=== PATIENT | male | born 1950 | race Caucasian/White ===

== ENCOUNTER 2017-01-25 05:57 | Day surgery (SDC) | payer MEDICARE, OTHER ==
[2017-01-25] MEDS ORDERED: Sodium Chloride 0.9% 10 ML Syringe FLUSH PRN ×2 (06:02→07:30)
[2017-01-25] MEDS ORDERED: fentaNYL 100 MCG/2 ML SDV ONE (06:15)
[2017-01-25] MEDS ORDERED: Midazolam 1 MG/ML 2 ML SDV ONE (06:15)
[2017-01-25] MEDS ORDERED: Dextrose 5%-0.45% NaCl 1,000 ML IV SCH ×2 (06:15→07:30)
[2017-01-25] MEDS ORDERED: fentaNYL 100 MCG/2 ML SDV IV ONE ×5 (07:03→14:41)
[2017-01-25] MEDS ORDERED: Midazolam 1 MG/ML 2 ML SDV IV ONE ×7 (07:04→14:41)
--- NOTE | 2017-01-25 07:43 | OR ---
DATE: 01/25/2017 PROCEDURE: Total colonoscopy. INSTRUMENT USED: CF-H180AL Olympus video colonoscope. PREMEDICATIONS: Fentanyl 150 mcg intravenous, Versed 4 mg intravenous. Nasal O2 cannula. The procedure was done under pulse oximetry, BP recording, and cardiac care nurse. INDICATION: The patient with rectal bleeding. Colonoscopic examination is done for detection of any polypoid lesions and removal, endoscopic hemostasis therapy if needed. DESCRIPTION OF PROCEDURE: Initial rectal exam showed small external hemorrhoids. Rigid anoscopy showed small internal hemorrhoids without bleeding from them. The colonoscope was passed with ease. Few scattered diverticula were noted in the distal left colon along with some deformity. The scope was passed with ease up to the ileocecal area. There was some amount of fecal material that had to be aspirated. No bleeding was noted from any of the visualized areas at the commencement of the examination. No stricture. No vascular ectasia. No large isolated ulcerations seen. No evidence of diffuse inflammatory bowel disease in the form of friability, contact bleeding, or ulcerations. No polyp or tumor mass identified. Probing the proximal sides of folds and flexures, using adequate distention and clearing of the stool material, withdrawal of the scope was made, cecum to rectum time over 6 minutes. No bleeding was noted from any of the visualized areas at the completion of examination. IMPRESSION: 1. External and internal hemorrhoids. 2. Diverticulosis. The patient tolerated the procedure well. [facility] /[id number]
[2017-01-25 09:34] VITALS: BP 130/69
== END 2017-01-25 09:25 | disposition home or self-care (01) ==
LOC: DL.ENDO 05:57
PROVIDERS: ATTEND Internal Medicine Gastroenterology
DX: K64.8 Other hemorrhoids (principal); K64.4 Residual hemorrhoidal skin tags; K57.30 Diverticulosis of large intestine without perforation or abscess without bleeding; E66.9 Obesity, unspecified; I10 Essential (primary) hypertension; E79.0 Hyperuricemia without signs of inflammatory arthritis and tophaceous disease; E78.5 Hyperlipidemia, unspecified; R73.9 Hyperglycemia, unspecified; Z88.8 Allergy status to other drugs, medicaments and biological substances; Z87.891 Personal history of nicotine dependence; Z79.899 Other long term (current) drug therapy; Z72.0 Tobacco use
CPT/HCPCS: 45378; J2250; J3010; J7042

== ENCOUNTER 2019-11-17 21:46 | Emergency (ER) | payer MEDICARE, OTHER ==
--- NOTE | 2019-11-17 21:38 | PCM.SN.2 ---
- Free Text/Narrative Note: Carl Teran is a 69 y/o male with chief complaint of severe lower abdominal pain which started in the last 24 hours. He has had 5 BMs today. No N/V. No blood by mouth or rectum. Temp 96.4. No other family members have been ill. No cough, shortness of breath, sore throat or other symptoms. Mr. Teran's mother last weekend (11/10/19). She tested Covid positive on 10/30/19 while in a local jail. She developed ischemic necrosis of the small bowel while in Covid isolation. Mr. Teran had not seen his mother for about a month prior to her but was allowed a compassionate family visit on the day before her (11/08). He donned and wore complete PPE: gown, mask with face shield, and gloves. He states he did not remove any of the PPE during the short visit. I spoke with Cliff's , Caryn. She stated that they do not wear masks when out in public and have been to [employer] without masks. She and her daughter are both well. Past Medical History: hypertension. OA. Chronic back pain. Abnormal LFTs. I discussed the case with Dr. Clancy. He will see Mr. Teran in the ER. A rapid Covid-19 screening will be done before any workup is started. Impression: 1. Acute abdominal pain with multiple BMs. 2. Recent of mother, as above. Saw mother on day prior to , wearing complete PPE.
[~2019-11-17 21:46] MED LIST: Sodium Chloride 0.9% 1,000 ML IV SCH
[2019-11-17 21:51] VITALS: BP 156/77; PULSE 64
[2019-11-17] MEDS ORDERED: Loperamide 2 MG Cap PO ONE (22:58)
== END 2019-11-17 23:11 | disposition home or self-care (01) ==
LOC: DL.ED 21:46
DX: R10.30 Lower abdominal pain, unspecified (principal); I10 Essential (primary) hypertension; M06.9 Rheumatoid arthritis, unspecified; Z20.828 Contact with and (suspected) exposure to other viral communicable diseases
CPT/HCPCS: 36415; 80053; 83605; 85025; 99284; U0002

== ENCOUNTER 2021-04-03 12:52 | Emergency (ER) | payer MEDICARE, OTHER ==
[2021-04-03 13:11] VITALS: BP 141/67; PULSE 58
[2021-04-03] MEDS ORDERED: Sodium Chloride 0.9% 10 ML Syringe FLUSH PRN (13:47)
--- NOTE | 2021-04-03 13:47 | EDM.PDOC ---
ED HPI GENERAL MEDICAL PROBLEM - General Chief Complaint: Cardiovascular Problem Stated Complaint: [id number] DIZZINESS LOW BLOOD PRESSURE Time Seen by Provider: 04/03/21 13:25 Source of Information: Reports: Patient History Limitations: Reports: No Limitations - History of Present Illness INITIAL COMMENTS - FREE TEXT/NARRATIVE: 71 y/ M c/o an episode of dizziness, hypotension yesterday, upper left back pn, abd pn. Pt reports that he has had dizziness off and on for a week but after smoking some marijuana yesterday he became so dizzy he fell. His checked his BP at the time and reports it was 64/38. The symptoms resolved on their own without intervention. Pt has also had some abd pn for several days adn was evaluated for by Dr. Thomson who had an ultrasound done 03-23 which showed gall stones. Today the pt is slightly dizzy, worse bending over. Abd pn is 2/10 diffuse over the upper abd. No abdominal surgeries. No fever, cough, chills, cp, db, pelvic pn. abdominal Pain Score (Numeric/FACES): 2 - Related Data Allergies Allergy/AdvReac Type Severity Reaction Status Date / Time duloxetine [From Cymbalta] Allergy Cannot Verified 04/03/21 13:11 Remember gabapentin AdvReac Dizziness Verified 04/03/21 13:11 Home Meds: Home Meds Aspirin [Ecotrin EC] 81 mg PO DAILY 01/24/17 [History] Calcium Carbonate/Vitamin D3 [Os-Ventura 500+D] 1 tab PO DAILY 01/24/17 [History] Ezetimibe [Zetia] 10 mg PO DAILY 01/24/17 [History] Hydrocodone/Acetaminophen [Hydrocodone-Acetaminophen 5-325] 1 tab PO Q8H PRN 01/24/17 [History] Hydrocortisone 1 squirt TOP ASDIRECTED 01/24/17 [History] Lidocaine/Hydrocortisone AC [Lidocaine-Hydrocort 3-2.5% Gel] 1 squirt TOP ASDIRECTED 01/24/17 [History] Pantoprazole Sodium 20 mg PO DAILY 01/24/17 [History] amLODIPine [Norvasc] 10 mg PO DAILY 01/24/17 [History] lisinopriL [Prinivil] 40 mg PO DAILY 01/24/17 [History] Past Medical History HEENT History: Reports: Impaired Vision Other HEENT History: wear glasses Cardiovascular History: Reports: High Cholesterol, Hypertension Respiratory History: Reports: None Gastrointestinal History: Reports: Cholelithiasis, GERD Genitourinary History: Reports: None Musculoskeletal History: Reports: Back Pain, Chronic, Gout, Osteoarthritis Neurological History: Reports: None Psychiatric History: Reports: None Endocrine/Metabolic History: Reports: Obesity/BMI 30+ Hematologic History: Reports: None Immunologic History: Reports: None Oncologic (Cancer) History: Reports: Other (See Below) Other Oncologic History: pre-cancerous skin lesion on right cheek Dermatologic History: Reports: None - Infectious Disease History Infectious Disease History: Reports: Measles Other Infectious Disease History: doesnt remember most of chid diseases - Past Surgical History HEENT Surgical History: Reports: None GI Surgical History: Reports: None Musculoskeletal Surgical History: Reports: Carpal Tunnel Social & Family History - Family History Family Medical History: No Pertinent Family History - Tobacco Use Tobacco Use Status *Q: Never Tobacco User Second Hand Smoke Exposure: No - Caffeine Use Caffeine Use: Reports: Coffee Other Caffeine Use: 3 cups a day - Alcohol Use Days Per Week of Alcohol Use: 7 Number of Drinks Per Day: 2 Total Drinks Per Week: 14 - Recreational Drug Use Recreational Drug Use: Yes Recreational Drug Type: Reports: Marijuana/Hashish Recreational Drug Use Frequency: Daily ED ROS GENERAL - Review of Systems Review Of Systems: Comprehensive ROS is negative, except as noted in HPI. ED EXAM, GENERAL - Physical Exam Exam: See Below General Appearance: Alert, No Apparent Distress Eye Exam: Bilateral Eye: PERRL Ears: Normal External Exam, Normal Canal, Hearing Grossly Normal, Normal TMs Nose: Normal Inspection, Normal Mucosa, No Blood Throat/Mouth: Normal Inspection, Normal Lips, Normal Teeth, Normal Gums, Normal Oropharynx, Normal Voice, No Airway Compromise Head: Atraumatic, Normocephalic Neck: Normal Inspection, Supple, Non-Tender, Full Range of Motion Respiratory/Chest: No Respiratory Distress, Lungs Clear, Normal Breath Sounds, No Accessory Muscle Use, Chest Non-Tender Cardiovascular: Normal Peripheral Pulses, Bradycardia Peripheral Pulses: 1+: Dorsalis Pedis (L), Dorsalis Pedis (R), 2+: Carotid (L), Carotid (R), Radial (L), Radial (R), Femoral (L), Femoral (R) GI/Abdominal: Soft, Tender (tender over upper quad, pt has an obese abd, aortic pulsation appreciable just below the epigastrium) Back Exam: Normal Inspection, Full Range of Motion Extremities: Normal Inspection, Normal Range of Motion, Non-Tender Neurological: Alert, Oriented, CN II-XII Intact, Normal Cognition, Normal Gait, Normal Reflexes, No Motor/Sensory Deficits Psychiatric: Normal Affect, Normal Mood Skin Exam: Warm, Dry, Intact, Normal Color, No Rash #1 Interpretation EKG Date: 04/03/21 Time: 13:57 Rhythm: Other (sinus rhythm) Rate (Beats/Min): 50 [place]: Normal P-Wave: Present QRS: Other (abnormal R-wave progression, early transition) ST-T: Normal QT: Normal Course - Vital Signs Last Recorded V/S: Last Vital Signs Temp 97.6 F 04/03/21 13:03 Pulse 58 L 04/03/21 13:03 Resp 16 04/03/21 13:03 BP 141/67 H 04/03/21 13:03 Pulse Ox 98 04/03/21 13:03 - Orders/Labs/Meds Orders: Active Orders 24 hr Category Date Time Status Peripheral IV Care [RC] . DIRECTED Care 04/03/21 13:48 Active Sodium Chloride 0.9% [Saline Flush] Med 04/03/21 13:47 Active 10 ml FLUSH ASDIRECTED PRN Peripheral IV Insertion Adult [OM.PC] Routine Oth 04/03/21 13:47 Ordered Medication Orders Sodium Chloride (Sodium Chloride 0.9% 10 Ml Syringe) 10 ml FLUSH ASDIRECTED PRN PRN Reason: Keep Vein Open Last Admin: 04/03/21 15:49 Dose: 10 ml Documented by: [id number] Labs: Laboratory Tests 04/03/21 04/03/21 04/03/21 Range/Units 13:53 13:56 13:56 WBC 7.8 (5.0-10.0) 10^3/uL RBC 4.32 L (4.6-6.2) 10^6/uL Hgb 13.2 L D (14.0-18.0) g/dL Hct 39.6 L (40.0-54.0) % MCV 91.7 (80-100) fL MCH 30.6 (27.0-34.0) pg MCHC 33.3 (33.0-35.0) g/dL Plt Count 238 (150-450) 10^3/uL Neut % (Auto) 72.0 (42.2-75.2) % Lymph % (Auto) 19.0 L (20.5-50.1) % Smyth % (Auto) 7.3 (2-8) % Eos % (Auto) 1.2 (1.0-3.0) % Baso % (Auto) 0.5 (0.0-1.0) % Sodium 141 (136-145) mmol/L Potassium 4.6 (3.5-5.1) mmol/L Chloride 103 (98-107) mmol/L Carbon Dioxide 29 (21-32) mmol/L Anion Gap 13.6 H (7-13) mEq/L BUN 32 H (7-18) mg/dL Creatinine 1.42 H (0.70-1.30) mg/dL Est Cr Clr Drug Dosing 49.27 mL/min Estimated GFR (MDRD) 49 BUN/Creatinine Ratio 22.5 (No establ ref range) Glucose 123 H (70-99) mg/dL Lactic Acid (0.4-2.0) mmol/L Calcium 9.0 (8.5-10.1) mg/dL Phosphorus 3.9 (2.6-4.7) mg/dL Magnesium 2.4 (1.8-2.4) mg/dL Total Bilirubin 0.9 (0.2-1.0) mg/dL AST 143 H (15-37) U/L ALT 108 H (16-63) U/L Alkaline Phosphatase 243 H (46-116) U/L Lactate Dehydrogenase (85-227) U/L Troponin I High Sens 5 (<=76) pg/mL C-Reactive Protein < 0.2 (0.0-0.9) mg/dL B-Natriuretic Peptide 31 (0-100) pg/ml Total Protein 7.5 (6.4-8.2) g/dL Albumin 3.8 (3.4-5.0) g/dL Globulin 3.7 Albumin/Globulin Ratio 1.0 Amylase 73 (25-115) U/L Lipase 121 (73-393) U/L TSH, Ultra Sensitive (0.36-3.74) uIU/mL Urine Color (YELLOW) Urine Appearance (CLEAR) Urine pH (5.0-9.0) Ur Specific [place] (1.005-1.030) Urine Protein (NEGATIVE) Urine Glucose (UA) (NEGATIVE) Urine Ketones (NEGATIVE) Urine Occult Blood (NEGATIVE) Urine Nitrite (NEGATIVE) Urine Bilirubin (NEGATIVE) Urine Urobilinogen (0.2-1.0) mg/dL Ur Leukocyte Esterase (NEGATIVE) SARS CoV-2 RNA Rapid MEGAN Negative (NEGATIVE) 04/03/21 04/03/21 04/03/21 Range/Units 13:56 13:56 13:56 WBC (5.0-10.0) 10^3/uL RBC (4.6-6.2) 10^6/uL Hgb (14.0-18.0) g/dL Hct (40.0-54.0) % MCV (80-100) fL MCH (27.0-34.0) pg MCHC (33.0-35.0) g/dL Plt Count (150-450) 10^3/uL Neut % (Auto) (42.2-75.2) % Lymph % (Auto) (20.5-50.1) % Smyth % (Auto) (2-8) % Eos % (Auto) (1.0-3.0) % Baso % (Auto) (0.0-1.0) % Sodium (136-145) mmol/L Potassium (3.5-5.1) mmol/L Chloride (98-107) mmol/L Carbon Dioxide (21-32) mmol/L Anion Gap (7-13) mEq/L BUN (7-18) mg/dL Creatinine (0.70-1.30) mg/dL Est Cr Clr Drug Dosing mL/min Estimated GFR (MDRD) BUN/Creatinine Ratio (No establ ref range) Glucose (70-99) mg/dL Lactic Acid 1.2 (0.4-2.0) mmol/L Calcium (8.5-10.1) mg/dL Phosphorus (2.6-4.7) mg/dL Magnesium (1.8-2.4) mg/dL Total Bilirubin (0.2-1.0) mg/dL AST (15-37) U/L ALT (16-63) U/L Alkaline Phosphatase (46-116) U/L Lactate Dehydrogenase 222 (85-227) U/L Troponin I High Sens (<=76) pg/mL C-Reactive Protein (0.0-0.9) mg/dL B-Natriuretic Peptide (0-100) pg/ml Total Protein (6.4-8.2) g/dL Albumin (3.4-5.0) g/dL Globulin Albumin/Globulin Ratio Amylase (25-115) U/L Lipase (73-393) U/L TSH, Ultra Sensitive 1.56 (0.36-3.74) uIU/mL Urine Color (YELLOW) Urine Appearance (CLEAR) Urine pH (5.0-9.0) Ur Specific [place] (1.005-1.030) Urine Protein (NEGATIVE) Urine Glucose (UA) (NEGATIVE) Urine Ketones (NEGATIVE) Urine Occult Blood (NEGATIVE) Urine Nitrite (NEGATIVE) Urine Bilirubin (NEGATIVE) Urine Urobilinogen (0.2-1.0) mg/dL Ur Leukocyte Esterase (NEGATIVE) SARS CoV-2 RNA Rapid MEGAN (NEGATIVE) 04/03/21 Range/Units 17:00 WBC (5.0-10.0) 10^3/uL RBC (4.6-6.2) 10^6/uL Hgb (14.0-18.0) g/dL Hct (40.0-54.0) % MCV (80-100) fL MCH (27.0-34.0) pg MCHC (33.0-35.0) g/dL Plt Count (150-450) 10^3/uL Neut % (Auto) (42.2-75.2) % Lymph % (Auto) (20.5-50.1) % Smyth % (Auto) (2-8) % Eos % (Auto) (1.0-3.0) % Baso % (Auto) (0.0-1.0) % Sodium (136-145) mmol/L Potassium (3.5-5.1) mmol/L Chloride (98-107) mmol/L Carbon Dioxide (21-32) mmol/L Anion Gap (7-13) mEq/L BUN (7-18) mg/dL Creatinine (0.70-1.30) mg/dL Est Cr Clr Drug Dosing mL/min Estimated GFR (MDRD) BUN/Creatinine Ratio (No establ ref range) Glucose (70-99) mg/dL Lactic Acid (0.4-2.0) mmol/L Calcium (8.5-10.1) mg/dL Phosphorus (2.6-4.7) mg/dL Magnesium (1.8-2.4) mg/dL Total Bilirubin (0.2-1.0) mg/dL AST (15-37) U/L ALT (16-63) U/L Alkaline Phosphatase (46-116) U/L Lactate Dehydrogenase (85-227) U/L Troponin I High Sens (<=76) pg/mL C-Reactive Protein (0.0-0.9) mg/dL B-Natriuretic Peptide (0-100) pg/ml Total Protein (6.4-8.2) g/dL Albumin (3.4-5.0) g/dL Globulin Albumin/Globulin Ratio Amylase (25-115) U/L Lipase (73-393) U/L TSH, Ultra Sensitive (0.36-3.74) uIU/mL Urine Color Yellow (YELLOW) Urine Appearance Clear (CLEAR) Urine pH 5.5 (5.0-9.0) Ur Specific [place] 1.015 (1.005-1.030) Urine Protein Negative (NEGATIVE) Urine Glucose (UA) Negative (NEGATIVE) Urine Ketones Negative (NEGATIVE) Urine Occult Blood Negative (NEGATIVE) Urine Nitrite Negative (NEGATIVE) Urine Bilirubin Negative (NEGATIVE) Urine Urobilinogen 0.2 (0.2-1.0) mg/dL Ur Leukocyte Esterase Negative (NEGATIVE) SARS CoV-2 RNA Rapid MEGAN (NEGATIVE) Meds: Medications Generic Name Dose Route Start Last Admin Trade Name Freq PRN Reason Stop Dose Admin Sodium Chloride 10 ml 04/03/21 13:47 04/03/21 15:49 Sodium Chloride 0.9% 10 Ml Syringe FLUSH 10 ml ASDIRECTED PRN Administration Keep Vein Open Discontinued Medications Generic Name Dose Route Start Last Admin Trade Name Freq PRN Reason Stop Dose Admin Sodium Chloride 1,000 mls @ 999 mls/hr 04/03/21 14:41 04/03/21 16:54 Normal Saline IV 04/03/21 15:41 Infused .BOLUS ONE Infusion Iopamidol 100 ml 04/03/21 14:48 04/03/21 15:11 Iopamidol 612 Mg/Ml 100 Ml Bottle IVPUSH 04/03/21 14:49 75 ml ONETIME ONE Administration - Re-Assessments/Exams Free Text/Narrative Re-Assessment/Exam: 04/03/21 18:43 [facility] but she refused to do consults over the phone. I spoke with Dr. Haile at [facility] who stated the elevated Liver enzymes can be followed up with outpatient workup and most likely an MRI. I will discharge the pt home to follow up outpatient. Departure - Departure Time of Disposition: 18:46 Disposition: Home, Self-Care 01 Condition: Good Clinical Impression: Elevated LFTs Forms: ED Department Discharge Additional Instructions: Avoid tylenol while your liver enzymes are elevated. Follow up with GI next week regarding your elevated liver enzymes. If any new symptoms or concerns develop contact your primary care facility or return to the Er. Sepsis Event Note (ED) - Evaluation Sepsis Screening Result: No Definite Risk - Focused Exam Vital Signs: Vital Signs Temp Pulse Resp BP Pulse Ox 04/03/21 13:03 97.6 F 58 L 16 141/67 H 98 - My Orders Last 24 Hours: My Active Orders 04/03/21 13:47 Sodium Chloride 0.9% [Saline Flush] 10 ml FLUSH ASDIRECTED PRN Peripheral IV Insertion Adult [OM.PC] Routine 04/03/21 13:48 Peripheral IV Care [RC] . DIRECTED - Assessment/Plan Last 24 Hours: My Active Orders 04/03/21 13:47 Sodium Chloride 0.9% [Saline Flush] 10 ml FLUSH ASDIRECTED PRN Peripheral IV Insertion Adult [OM.PC] Routine 04/03/21 13:48 Peripheral IV Care [RC] . DIRECTED
[2021-04-03 14:34] LABS: ANION GAP 13.6 mEq/L (7-13); CHLORIDE,CL 103 mmol/L (98-107); SODIUM,NA 141 mmol/L (136-145)
[2021-04-03] MEDS ORDERED: Sodium Chloride 0.9% 1,000 ML IV ONE (14:41)
[2021-04-03] MEDS ORDERED: Iopamidol 612 MG/ML 100 ML Bottle IVPUSH ONE (14:48)
--- NOTE | 2021-04-03 16:51 | CT ---
PROCEDURE INFORMATION: Exam: CT Chest With Contrast; Diagnostic Exam date and time: 04/03/2021 3:10 PM Age: 71 years old Clinical indication: Abdominal tenderness; Other: Upper back pain; Additional info: R upper back pn, diffuse upper abd pain TECHNIQUE: Imaging protocol: Diagnostic computed tomography of the chest with contrast. Radiation optimization: All CT scans at this facility use at least one of these dose optimization techniques: automated exposure control; mA and/or kV adjustment per patient size (includes targeted exams where dose is matched to clinical indication); or iterative reconstruction. Contrast material: ISOVUE 300; Contrast volume: 75 ml; Contrast route: INTRAVENOUS (IV); COMPARISON: CT ABDOMEN/PELVIS 04/19/2012 1:45 PM FINDINGS: Lungs: A few tiny sub 4 mm pulmonary nodules are seen. For patients at low risk (minimal or absent history of smoking and of other known risk factors), no routine follow-up is indicated. For patients at high risk (history of smoking or of other known risk factors), consider optional CT Chest at 12 months. (Reference: Leia) Pleural spaces: Unremarkable. No pneumothorax. No pleural effusion. Heart: Unremarkable. No cardiomegaly. No pericardial effusion. Aorta: Unremarkable. No aortic aneurysm. Other arteries: Coronary artery calcifications are seen. Lymph nodes: Unremarkable. No enlarged lymph nodes. Bones/joints: Unremarkable. No acute fracture. Soft tissues: Unremarkable. IMPRESSION: 1. No significant intrathoracic pathology. 2. A few sub 4 mm nodules are seen. If the patient is high risk, consider follow-up CT in a year. REFERENCES: Leia Alfaro, et al. Guidelines for Management of Incidental Pulmonary Nodules Detected on CT Images: From the Fleischner Society 2017. Radiology. 2017;284(1):228-243. PROCEDURE INFORMATION: Exam: CT Abdomen And Pelvis With Contrast Exam date and time: 04/03/2021 3:10 PM Age: 71 years old Clinical indication: Abdominal tenderness; Other: Upper back pain; Additional info: R upper back pn, diffuse upper abd pain TECHNIQUE: Imaging protocol: Computed tomography of the abdomen and pelvis with contrast. Radiation optimization: All CT scans at this facility use at least one of these dose optimization techniques: automated exposure control; mA and/or kV adjustment per patient size (includes targeted exams where dose is matched to clinical indication); or iterative reconstruction. Contrast material: ISOVUE 300; Contrast volume: 75 ml; Contrast route: INTRAVENOUS (IV); COMPARISON: CT ABDOMEN/PELVIS 04/19/2012 1:45 PM FINDINGS: Liver: A tiny hypodensity in the right hepatic lobe posterior segment is probably benign. Gallbladder and bile ducts: Gallstones noted. Gallbladder is contracted. Gallbladder wall appears mildly thickened, which could be related. Pancreas: Normal. No ductal dilation. Spleen: Normal. No splenomegaly. Adrenal glands: Normal. No mass. Kidneys and ureters: Renal hypodensities cannot be further characterized on this study. Stomach and bowel: Sigmoid diverticulosis noted. Small duodenal diverticulum. Appendix: No evidence of appendicitis. Intraperitoneal space: Unremarkable. No free air. No significant fluid collection. Vasculature: Unremarkable. No abdominal aortic aneurysm. Lymph nodes: Unremarkable. No enlarged lymph nodes. Urinary bladder: A mild bladder wall thickening may be due to underdistention, but please correlate for possible UTI. Reproductive: Mildly enlarged prostate. Bones/joints: Unremarkable. No acute fracture. Soft tissues: Unremarkable. IMPRESSION: 1. Cholelithiasis. Please correlate clinically for cholecystitis. 2. Mild bladder wall thickening is probably due to underdistention, but please correlate for cystitis. 3. Diverticulosis without CT evidence of diverticulitis.
== END 2021-04-03 18:58 | disposition home or self-care (01) ==
LOC: DL.ED 12:52
DX: R94.5 Abnormal results of liver function studies (principal); I10 Essential (primary) hypertension; E78.00 Pure hypercholesterolemia, unspecified; K21.9 Gastro-esophageal reflux disease without esophagitis; E66.9 Obesity, unspecified; Z79.899 Other long term (current) drug therapy; Z20.822 Contact with and (suspected) exposure to COVID-19; Z88.8 Allergy status to other drugs, medicaments and biological substances; Z79.82 Long term (current) use of aspirin
CPT/HCPCS: 36415; 71260; 74177; 80053; 81003; 82150; 83605; 83615; 83690; 83735; 83880; 84100; 84443; 84484; 85025; 86140; 93005; 99285; J7030; Q9967; U0002